=== PATIENT | male | born 1965 | race Caucasian/White ===

== ENCOUNTER 2024-04-28 15:45 | Emergency (ER) | payer OTHER, SELFPAY ==
[2024-04-28 15:55] VITALS: BP 185/111
--- NOTE | 2024-04-28 15:55 | ED.GENMED ---
ED Provider Triage
<Morales Galeas PA-C - Last Filed: 04/28/24 15:57>
-
Patient seen by provider in Triage?: Seen in Triage
Attestation: A medical screening examination has been initiated by a qualified medical provider. Based on the assessment performed at this time, it has been determined that an emergent medical condition may exist and the patient has been informed
that further medical evaluation and possible additional diagnostic testing may be needed.
HPI: 59-year-old male presenting to the ER with 3 days of chest pain. Primary care recommended patient come to the ER for further evaluation. No other associated symptoms. Patient notes multiple family members with cardiac issues.
GENERAL: Alert , in no apparent distress
EYE: No visual abnormalities.
NECK: Trachea midline
ENT: No visible abnormalities.
LUNGS: No acute respiratory distress
NEUROLOGICAL: Alert and oriented
SKIN: Skin intact. No visible changes.
MUSCULOSKELETAL: Moving extremities normally
PSYCH: Normal and appropriate interaction.
This is a medical evaluation conducted in person to initiate diagnostic evaluation and provide initial therapeutics. Please see further documentation by the treating clinician.
History of Present Illness
<Morales Galeas PA-C - Last Filed: 04/28/24 15:57>
General
Chief Complaint: Chest Pain
Time Seen by Provider: 04/28/24 17:44
<Gurpreet Serra DO - Last Filed: 04/28/24 18:26>
History of Present Illness
History of Present Illness:
TIME OF INITIAL ENCOUNTER: 6:15 PM
HPI: 59-year-old male presenting to the ER with 3 days of chest pain. Primary care recommended patient come to the ER for further evaluation. No other associated symptoms. The patient states that the symptoms come on spontaneously and are not
associated with exertion. He never had any diaphoresis or shortness of breath. He just resumed taking his omeprazole after being off of it for the last few weeks. He strolling suspects that heartburn/stomach ulcer could be a attributing factor.
He has not been to a oil filters inspector in over 15 years and thinks he had a stress test around that time. He is not sure where he saw the oil filters inspector. There has been no worsening of his symptoms today.
EXAM:
GENERAL: Well appearing in no distress, he is hypertensive
HEENT: Moist oral mucosa
CARDIOVASCULAR: No murmurs, normal heart rate, regular rhythm, No chest wall tenderness
PULMONARY: No respiratory distress, breath sounds are clear and equal
ABDOMEN: Soft with no peritoneal signs, no tenderness
NEUROLOGIC: Excellent strength all extremities, no coordination deficits
PSYCHIATRIC: Appropriate mental status, normal insight and judgement
EXTREMITIES: Nontender, no edema, moves all extremities equally
SKIN: No rash, no lesions
NUMBER AND COMPLEXITY OF PROBLEMS ADDRESSED AT THE ENCOUNTER
� Chronic conditions affecting care: High blood pressure, hyperlipidemia, GERD, diabetes
� Acute Exacerbation and/or Progression of Chronic Illness: This is an acute problem
� Differential Diagnosis includes: GERD, gastritis, stomach ulcer, chest wall pain, ACS
AMOUNT AND/OR COMPLEXITY OF DATA TO BE REVIEWED AND ANALYZED
� I performed an independent evaluation of and my interpretation is:
EKG: Sinus 64, normal axis, no acute ST abnormality
CT:
X-rays: Chest x-ray personally viewed, questionable density at the left base of doubtful clinical significance
Laboratory Studies: White count and hemoglobin are normal, chemistries unremarkable, troponin less than 0.012
Other:
� Review of other/old records: The patient was seen here in the emerged part with diverticulitis approximately 12 years ago
� Clinical information was obtained by an independent historian: I spoke to the at bedside
� Prescriptions/Medications Considered but not given:
� Further testing considered but not performed:
RISK OF COMPLICATIONS AND/OR MORBIDITY OR MORTALITY OF PATIENT MANAGEMENT
� Social determinants of health affecting care: Lives at home
� Discussion with other providers:
� Escalation of care including admission/observation vs risk of discharge considered: Although the patient has several cardiac risk factors, his symptoms have been ongoing for the past 3 days and he has a normal troponin. His
EKG is also normal. He has no symptoms that worsen with exertion. Given the amount of cardiac risk factors, I offered and considered keeping him for further observation however the patient feels very comfortable with close outpatient management.
He is to follow-up with [facility].
ANY OTHER UPDATES:
Past History
<Morales Galeas PA-C - Last Filed: 04/28/24 15:57>
Past History
ED Past Medical History: HTN
ED Past Surgical History: None
Social History
Tobacco: Smoker
Personal: Single
Employment: Employed
Phy Exam
<Gurpreet Serra DO - Last Filed: 04/28/24 18:26>
Physical Exam
Physical Exam:
See HPI
Scores
<Gurpreet Serra DO - Last Filed: 04/28/24 18:26>
Heart Score for Chest Pain Patients
STEMI patient?: Not applicable
Course
<Morales Galeas PA-C - Last Filed: 04/28/24 15:57>
Orders/Labs/Results
Orders:
Orders
04/28/24 15:46
EKG [Electrocardiogram (*1)] Urgent
Reason for Study: Chest Pain
EKG- Treatment ONCE
04/28/24 15:57
CR Chest - 2 Views Urgent
Comment:
Reason For Exam: chest pain
04/28/24 16:06
Basic Metabolic Panel Urgent
Complete Blood Count/With Diff Urgent
Troponin I Urgent
Abnormal Lab Results
04/28/24
16:06
RBC 4.33 L 10^6/uL
(4.70-6.10)
MCH 33.7 H pg
(27.0-31.0)
Abs Immat Gran (auto) 0.1 H 10^3/uL
(0-0.05)
Absolute Monos (auto) 0.9 H 10^3/uL
(0.1-0.6)
Monocytes % 9.5 H %
(1.7-9.3)
Carbon Dioxide 31 H mmol/L
(22-30)
04/28/24 16:06
04/28/24 16:06
Vital Signs
Initial and Last Documented VS:
Initial Vital Signs
Temp Pulse Resp BP Pulse Ox
36.9 C 68 20 185/111 100
04/28/24 15:55 04/28/24 15:55 04/28/24 15:55 04/28/24 15:55 04/28/24 15:55
Last Documented Vital Signs
Temp Pulse Resp BP Pulse Ox
36.9 C 68 16 166/93 98
04/28/24 15:55 04/28/24 18:05 04/28/24 18:05 04/28/24 18:04 04/28/24 18:08
<Gurpreet Serra, DO - Last Filed: 04/28/24 18:26>
Orders/Labs/Results
Orders:
Orders
04/28/24 15:46
EKG [Electrocardiogram (*1)] Urgent
Reason for Study: Chest Pain
EKG- Treatment ONCE
04/28/24 15:57
CR Chest - 2 Views Urgent
Comment:
Reason For Exam: chest pain
04/28/24 16:06
Basic Metabolic Panel Urgent
Complete Blood Count/With Diff Urgent
Troponin I Urgent
Abnormal Lab Results
04/28/24
16:06
RBC 4.33 L 10^6/uL
(4.70-6.10)
MCH 33.7 H pg
(27.0-31.0)
Abs Immat Gran (auto) 0.1 H 10^3/uL
(0-0.05)
Absolute Monos (auto) 0.9 H 10^3/uL
(0.1-0.6)
Monocytes % 9.5 H %
(1.7-9.3)
Carbon Dioxide 31 H mmol/L
(22-30)
04/28/24 16:06
04/28/24 16:06
Vital Signs
Initial and Last Documented VS:
Initial Vital Signs
Temp Pulse Resp BP Pulse Ox
36.9 C 68 20 185/111 100
04/28/24 15:55 04/28/24 15:55 04/28/24 15:55 04/28/24 15:55 04/28/24 15:55
Last Documented Vital Signs
Temp Pulse Resp BP Pulse Ox
36.9 C 68 16 166/93 98
04/28/24 15:55 04/28/24 18:05 04/28/24 18:05 04/28/24 18:04 04/28/24 18:08
<Gurpreet Serra DO - Last Filed: 04/28/24 18:26>
*Critical Care Note
Total Time (30-74mins, 75-104mins- exclusive of procedures): Not Applicable
ED Attending Note
<Morales Galeas PA-C - Last Filed: 04/28/24 15:57>
-
Portions of this chart may have been created with voice recognition software.� Occasional wrong word or��sound alike� substitutions may have occurred due to the inherent limitations of voice recognition software.
Discharge Plan
Departure
Patient Disposition: Home (Routine Discharge)
Date of Disposition: 04/28/24
Time of Disposition: 18:21
Patient with high blood pressure during this ER visit?: Yes
Discharge Problem:
Chest pain
Instructions: Chest Pain [facility] Follow Up
Prescriptions:
No Action
atenolol 100 MG tablet
100 mg PO DAILY
Hctz
PO DAILY
Patient Comments:
not sure amount
POTASSIUM
PO DAILY
Patient Comments:
not sure dose
hydrocodone-acetaminophen [Vicodin] 1 EACH tablet
1 ea PO Q6HPRN PRN (Reason: pain) Qty: 14 0RF
amoxicillin-pot clavulanate [Augmentin] 1 EACH tablet
1 ea PO BID Qty: 14 0RF
psyllium husk (aspartame) [Metamucil Fiber Singles] 1 PACKET powder in packet
1 packet PO DAILY Qty: 10 0RF
hydromorphone 2 MG tablet
2 mg PO Q4HPRN PRN (Reason: prn for pain) Qty: 20 0RF
Referrals:
Osmar Parra MD [Active] - Follow up in 2-3 days
Activity Restrictions/Additional Instructions:
I recommend that you follow-up with Dr. Parra's office, he is with [facility]. Somebody from their office should be calling you. If you do not hear from them by late afternoon tomorrow, I recommend that you call their
office to try to arrange close outpatient follow-up. Return here if worse. I recommend that you resume the omeprazole. This takes a few days to take effect.
Interventions
Interventions:
*Risk Screen - Suicide Last Done: 04/28/24 18:08
*General Assessment Last Done: 04/28/24 16:00
*Neglect/Abuse Screening Last Done: 04/28/24 18:08
ED- Fall Risk Assessment Last Done: 04/28/24 18:08
*ED COVID-19 Vaccine History Last Done: 04/28/24 18:08
ED- Cardiac Assessment Last Done: 04/28/24 18:08
Discharge Date and Time
Print Language: KOREAN
[2024-04-28 16:23] LABS: % Basophils 0.8 % (0-2); % Eosinophils 3.3 % (0-6); % Immature Granulocytes 0.5 % (0-0.5); % Lymphocytes 29.6 % (20.5-51.1); % Monocytes 9.5 % (1.7-9.3); % Neutrophils 56.3 % (42.2-75.2); Absolute Basophils 0.1 10^3/uL (0-0.2); Absolute Eosinophils 0.3 10^3/uL (0-0.7); Absolute Immature Granulocytes 0.1 10^3/uL (0-0.05); Absolute Lymphocytes 2.7 10^3/uL (1.2-3.4); Absolute Monocytes 0.9 10^3/uL (0.1-0.6); Absolute Neutrophils 5.1 10^3/uL (1.4-6.5); Hematocrit 40.4 % (39.0-52.0); Hemoglobin 14.6 g/dL (13.0-18.0); Mean Corp Hgb Conc. 36.1 g/dL (33.0-37.0); Mean Corpuscular Hgb 33.7 pg (27.0-31.0); Mean Corpuscular Volume 93.3 fL (80.0-94.0); Mean Platelet Volume 8.6 fL (7.4-10.4); Nucleated Red Blood Cells % 0 % (-); Platelet Count 222 10^3/uL (130-400); Red Blood Cell Count 4.33 10^6/uL (4.70-6.10); White Blood Cell Count 9.1 10^3/uL (4.8-10.8)
[2024-04-28 16:34] LABS: Blood Urea Nitrogen 18 mg/dl (9-20); Calcium 9.3 mg/dl (8.4-10.2); Carbon Dioxide 31 mmol/L (22-30); Chloride 101 mmol/L (98-107); Glucose 99 mg/dl (70-99); Potassium 4.1 mmol/L (3.5-5.1); Sodium 141 mmol/L (135-145); eGFR > 60.00
[2024-04-28 16:45] LABS: Troponin I < 0.012 ng/ml
[2024-04-28 18:04] VITALS: BP 166/93
[2024-04-28 18:08] VITALS: BMI 32.8
[2024-04-28 18:31] VITALS: BP 154/93
== END 2024-04-28 18:39 | disposition home or self-care (01) ==
LOC: EMR 15:45
PROVIDERS: Physician Assistant Medical; EMERGENCY PHYSICIAN Emergency Medicine; FAMILY PHYSICIAN Family Medicine
DX: R07.89 Other chest pain (principal); I10 Essential (primary) hypertension; F17.200 Nicotine dependence, unspecified, uncomplicated
CPT/HCPCS: 99283; 71046; 80048; 84484; 85025; 93005

== ENCOUNTER 2024-04-28 20:23 | Emergency (ER) | payer OTHER, SELFPAY ==
[2024-04-28 20:23] VITALS: BMI 32.7
[2024-04-28 20:25] VITALS: BP 201/111
--- NOTE | 2024-04-28 20:29 | ED.GENMED ---
History of Present Illness
General
Chief Complaint: Chest Problem
Time Seen by Provider: 04/28/24 20:28
History of Present Illness
History of Present Illness:
TIME OF INITIAL ENCOUNTER: 8:30 PM
HPI: I saw this patient earlier in the day and he came in with 3 days of intermittent chest discomfort with unremarkable EKG and troponin. The radiologist notified me later that the chest x-ray did show some concern for the appearance of the aorta
and recommended CTA imaging obtained.
EXAM:
GENERAL: Well appearing in no distress, he is hypertensive�he states that the hypertension is related to being stressed and worried
HEENT: Moist oral mucosa
CARDIOVASCULAR: No murmurs, normal heart rate, regular rhythm, No chest wall tenderness
PULMONARY: No respiratory distress, breath sounds are clear and equal
ABDOMEN: Soft with no peritoneal signs, no tenderness
NEUROLOGIC: Excellent strength all extremities, no coordination deficits
PSYCHIATRIC: Appropriate mental status, normal insight and judgement
EXTREMITIES: Nontender, no edema, moves all extremities equally
SKIN: No rash, no lesions
NUMBER AND COMPLEXITY OF PROBLEMS ADDRESSED AT THE ENCOUNTER
� Chronic conditions affecting care: High blood pressure, hyperlipidemia, diabetes
� Acute Exacerbation and/or Progression of Chronic Illness: This is an acute problem
� Differential Diagnosis includes: ACS, aortic dissection, hypertensive urgency, anxiety, noncardiac chest wall pain
AMOUNT AND/OR COMPLEXITY OF DATA TO BE REVIEWED AND ANALYZED
� I performed an independent evaluation of and my interpretation is:
EKG:
CT: CT shows no evidence of aortic dissection
X-rays:
Laboratory Studies:
Other:
� Review of other/old records:
� Clinical information was obtained by an independent historian:
� Prescriptions/Medications Considered but not given:
� Further testing considered but not performed: The patient just had workup prior to arrival�he was only sent here for CTA and there is been no new symptoms therefore no additional testing performed
RISK OF COMPLICATIONS AND/OR MORBIDITY OR MORTALITY OF PATIENT MANAGEMENT
� Social determinants of health affecting care: Lives at home
� Discussion with other providers: I did discuss case with Dr. Cantu earlier
� Escalation of care including admission/observation vs risk of discharge considered:
ANY OTHER UPDATES:
10:05 PM: I reassessed patient. The patient is resting comfortably. Blood pressure spontaneously improved. No evidence of aortic dissection. 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
Past History
Past History
ED Past Medical History: HTN
ED Past Surgical History: None
Social History
Tobacco: Smoker
Personal: Single
Employment: Employed
Phy Exam
Physical Exam
Physical Exam:
See HPI
Course
Orders/Labs/Results
Orders:
Orders
04/28/24 20:28
CT Chest Angio W/wo Iv Contras Urgent
Comment:
Reason For Exam: intermittent CP; abnormal CXR
Vital Signs
Initial and Last Documented VS:
Initial Vital Signs
Temp Pulse Resp BP Pulse Ox
36.9 C 69 18 201/111 100
04/28/24 20:25 04/28/24 20:25 04/28/24 20:25 04/28/24 20:25 04/28/24 20:25
Last Documented Vital Signs
Temp Pulse Resp BP Pulse Ox
36.9 C 68 16 164/78 99
04/28/24 20:25 04/28/24 20:43 04/28/24 20:43 04/28/24 20:43 04/28/24 20:43
*Critical Care Note
Total Time (30-74mins, 75-104mins- exclusive of procedures): Not Applicable
ED Attending Note
-
Portions of this chart may have been created with voice recognition software.� Occasional wrong word or��sound alike� substitutions may have occurred due to the inherent limitations of voice recognition software.
Discharge Plan
Departure
Patient Disposition: Home (Routine Discharge)
Date of Disposition: 04/28/24
Time of Disposition: 22:05
Patient with high blood pressure during this ER visit?: Yes
Discharge Problem:
Chest pain
Instructions: BLOOD PRESSURE
Prescriptions:
No Action
atenolol 100 MG tablet
100 mg PO DAILY
Hctz
PO DAILY
Patient Comments:
not sure amount
POTASSIUM
PO DAILY
Patient Comments:
not sure dose
hydrocodone-acetaminophen [Vicodin] 1 EACH tablet
1 ea PO Q6HPRN PRN (Reason: pain) Qty: 14 0RF
amoxicillin-pot clavulanate [Augmentin] 1 EACH tablet
1 ea PO BID Qty: 14 0RF
psyllium husk (aspartame) [Metamucil Fiber Singles] 1 PACKET powder in packet
1 packet PO DAILY Qty: 10 0RF
hydromorphone 2 MG tablet
2 mg PO Q4HPRN PRN (Reason: prn for pain) Qty: 20 0RF
Referrals:
Vannessa Haley DO [Family Provider] -
Activity Restrictions/Additional Instructions:
Follow-up with cardiology. Return here if worse or other concerns. The CAT scan of the chest shows no aortic dissection. The radiologist noted 'aortic ectasia' which is very common and is not of any significance. Be sure to continue your blood
pressure condition.
Interventions
Interventions:
*Risk Screen - Suicide Last Done: 04/28/24 20:25
*General Assessment Last Done: 04/28/24 20:25
*Neglect/Abuse Screening Last Done: 04/28/24 20:25
ED- Fall Risk Assessment Last Done: 04/28/24 20:32
*ED COVID-19 Vaccine History Last Done: 04/28/24 20:25
ED- Cardiac Assessment Last Done: 04/28/24 20:32
ED- Pulmonary Assessment Last Done: 04/28/24 20:32
Discharge Date and Time
Print Language: MONGOLIAN
[2024-04-28 20:43] VITALS: BP 164/78
[2024-04-28 22:20] VITALS: BP 147/68
== END 2024-04-28 22:27 | disposition home or self-care (01) ==
LOC: EMR 20:23
PROVIDERS: EMERGENCY PHYSICIAN Emergency Medicine; FAMILY PHYSICIAN Family Medicine
DX: R07.89 Other chest pain (principal); I10 Essential (primary) hypertension; F17.200 Nicotine dependence, unspecified, uncomplicated
CPT/HCPCS: 99284; 71275; Q9967

== ENCOUNTER → 2024-05-23 07:52 | Outpatient (REF) | payer OTHER, SELFPAY | LOC: DHCBC/DCA 07:52 | PROVIDERS: ATTENDING PHYSICIAN Internal Medicine Cardiovascular Disease; FAMILY PHYSICIAN Family Medicine | DX: R07.89 Other chest pain (principal) | CPT/HCPCS: 78452; 93017; A9500 ==

== ENCOUNTER → 2024-05-27 10:12 | Outpatient (REF) | payer OTHER, SELFPAY | LOC: HWRCS 10:12 | PROVIDERS: ATTENDING PHYSICIAN Internal Medicine Cardiovascular Disease; FAMILY PHYSICIAN Family Medicine | DX: R07.89 Other chest pain (principal) | CPT/HCPCS: 93306 ==

== ENCOUNTER 2024-06-01 10:06 | Inpatient (IN) | payer OTHER, SELFPAY ==
[2024-05-30] VITALS (20 sets, daily range): BP systolic 96–209; BP diastolic 60–119; BMI 32.1
[2024-05-30 07:40] LABS: Hematocrit 42.2 % (39.0-52.0); Hemoglobin 15.2 g/dL (13.0-18.0); Mean Corpuscular Hgb 33.6 pg (27.0-31.0); Mean Corpuscular Volume 93.4 fL (80.0-94.0); Mean Platelet Volume 8.5 fL (7.4-10.4); Platelet Count 215 10^3/uL (130-400); Red Blood Cell Count 4.52 10^6/uL (4.70-6.10); Red Cell Dist. Width 11.9 % (11.5-14.5); White Blood Cell Count 7.7 10^3/uL (4.8-10.8)
[2024-05-30] MEDS: LOW STRENGTH ASPIRIN 324 MG PO (07:43)
[2024-05-30 07:53] LABS: ALT (SGPT) 35 U/L (0-50); AST (SGOT) 40 U/L (17-59); Albumin 4.3 g/dl (3.5-5.0); Alkaline Phosphatase 87 U/L (38-126); Blood Urea Nitrogen 16 mg/dl (9-20); Calcium 8.9 mg/dl (8.4-10.2); Carbon Dioxide 30 mmol/L (22-30); Chloride 101 mmol/L (98-107); Estimated Creatinine Clearance 70 ml/min; Glucose 138 mg/dl (70-99); Sodium 140 mmol/L (135-145); Total Bilirubin 0.9 mg/dl (0.2-1.3); Total Protein 6.8 g/dl (6.3-8.2)
[2024-05-30 09:44] LABS: ACT-LR - POC 303 Seconds (116-155)
[2024-05-30 10:15] LABS: ACT-LR - POC 310 Seconds (116-155)
--- NOTE | 2024-05-30 10:56 | ITS.CL.CATH ---
[facility] - Catheterization
Cardiac Catheterization
Procedure Report:
LEFT HEART CATH AND CORONARY INTERVENTION
Date of Procedure: May 30, 2024
Referring: Dr. Henrique Fuentes
PROCEDURES:
1. Left heart catheterization with coronary and single-plane left ventriculography
2. Successful stenting of the mid right coronary artery with a 4.5 x 18 mm [place] stent that was postdilated to high pressures with a 4.5 mm noncompliant balloon
INDICATION: This is a 59-year-old gentleman with a past medical history notable for hypertension and hyperlipidemia who developed the recent onset of substernal chest pressure and a stress study that showed inferior ischemia. He is now referred for
coronary angiography.
ACCESS: Right radial artery, 6 [place] sheath
HEMODYNAMICS (mmHg):
AO (s/d) : 150/85
LV (s/d) : 143/11
LVEDP : 19
CORONARY FINDINGS
Dominance: Right
LEFT MAIN: Normal
LEFT ANTERIOR DESCENDING: The LAD arises normally from the left main and runs in the anterior interventricular groove supplying a single sizable diagonal branch. The LAD has minor irregularities over its course but no focal obstructive stenosis
CIRCUMFLEX: Medium caliber nondominant vessel giving rise to a bifurcating OM1 with minor irregularities
RIGHT CORONARY: The right coronary artery is a large-caliber dominant vessel with an ulcerated 95% stenosis noted in the mid RCA. The PDA is widely patent. The posterolateral branch is widely patent.
VENTRICULOGRAPHY: Left ventriculography was performed in an GAMA projection. The digital single-plane left ventricular ejection fraction is visually estimated at 60%. No regional wall motion abnormalities are noted
ANGIOPLASTY PROCEDURE DETAIL: Upon review of the diagnostic catheterization films a decision was made to proceed with percutaneous revascularization of the high-grade stenosis in the mid RCA. A 600 mg loading dose of clopidogrel was administered.
Intravenous heparin was given and the ACT was monitored throughout the procedure. The origin of the RCA was cannulated with a 6 [place] JR4 guide catheter in the mid RCA stenosis was crossed with a BMW guidewire which was advanced into the distal
vessel. Balloon predilation was performed using a 2.5 x 12 mm [place] balloon and was followed by placement of a 4.5 x 18 mm [place] stent that was implanted at nominal pressures then postdilated between 14 and 16 nellie with a 4.5 mm noncompliant
balloon. The patient did experience chest discomfort following stent deployment which persisted through the conclusion of the procedure and required IV nitroglycerin. There was JENNIE-3 flow into the distal vessel and no obvious dissection or loss
of any significant sidebranch.
SEDATION: 80 minutes of procedural sedation was utilized. An independent certified medical records coder was present to assist with and help manage the patient's level of consciousness and physiologic status.
RADIATION SUMMARY: Fluoro Time (min): 9.1, Dose (mGy): 904.4, DAP (Gy.cm2) : 57.9
CONCLUSIONS
1. Successful stenting of the mid RCA with a 4.5 x 18 mm [place] stent that was implanted at nominal pressures and postdilated with a 4.5 mm noncompliant balloon
2. Preserved left ventricular systolic function
RECOMMENDATIONS
1. Uninterrupted dual antiplatelet therapy for 6 to 12 months
2. High intensity statin with goal LDL cholesterol less than 70 and closer to 55 mg/dL
3. Home blood pressures are not well-controlled. Titrate medication for better blood pressure control
Copy to: Dr. Henrique Fuentes
[2024-05-30] MEDS: NORVASC 5 MG PO (10:58)
[2024-05-30] MEDS: COREG 12.5 MG PO ×2 (11:16→20:22)
[2024-05-30] MEDS: TYLENOL 650 MG PO ×2 (11:31→18:35)
--- NOTE | 2024-05-30 13:12 | PTCARENOTE ---
Received patient from the labor specialist at 1230 after cath via R radial. Radial band in place with a strong radial pulse and pulse ox of 96% on the right hand. NTG gtt infusing initially at 60mcg/min, SBP now in the low 100's, reports right sided chest
pain as a 3/10 and much better than earlier. Patient seen by Dr. Parekh, to taper NTG gtt if BP is running soft. Notified Tal Corbett LEATHER LACER with BP of 96/74 now and orders for diovan and HCTZ PO. NTG gtt decreased to 40mcg/min and will hold off on PO meds
as ordered until SBP >120.
[2024-05-30 17:42] LABS: Glucose - Point of Care 79 mg/dl (70-99)
--- NOTE | 2024-05-30 17:49 | PTCARENOTE ---
TT to Tal Corbett INTERACTIVE MEDIA MARKETING SPECIALIST re: diovan and HCTZ ordered earlier. BP still < 120 and medications discontinued. Right sided chest pain much less but patient still rates 2/10. To continue NTG gtt which is presently at 25mcg/min and maintain, continuing to
monitor BP.
[2024-05-30] MEDS: LIPITOR 40 MG PO (18:33)
[2024-05-30] MEDS: TRICOR 48 MG PO (18:33)
[2024-05-30 21:42] LABS: Glucose - Point of Care 139 mg/dl (70-99)
[2024-05-30] MEDS: PERCOCET 5/325 1 TABLET PO (23:21)
[2024-05-30] MEDS: MELATONIN 5 MG PO (23:35)
[2024-05-31] VITALS (13 sets, daily range): BP systolic 128–189; BP diastolic 85–110; BMI 32.5
[2024-05-31] MEDS: TYLENOL 650 MG PO (00:31)
[2024-05-31 03:23] LABS: Hematocrit 37.4 % (39.0-52.0); Hemoglobin 13.4 g/dL (13.0-18.0); Mean Corp Hgb Conc. 35.8 g/dL (33.0-37.0); Mean Corpuscular Hgb 33.1 pg (27.0-31.0); Mean Corpuscular Volume 92.3 fL (80.0-94.0); Mean Platelet Volume 8.6 fL (7.4-10.4); Platelet Count 193 10^3/uL (130-400); Red Blood Cell Count 4.05 10^6/uL (4.70-6.10); Red Cell Dist. Width 11.9 % (11.5-14.5); White Blood Cell Count 9.6 10^3/uL (4.8-10.8)
[2024-05-31 03:46] LABS: Blood Urea Nitrogen 20 mg/dl (9-20); Calcium 9.2 mg/dl (8.4-10.2); Carbon Dioxide 25 mmol/L (22-30); Chloride 100 mmol/L (98-107); Estimated Creatinine Clearance 61 ml/min; Glucose 128 mg/dl (70-99); HDL Cholesterol 45 mg/dl; Potassium 3.7 mmol/L (3.5-5.1); Sodium 135 mmol/L (135-145); Total Cholesterol 173 mg/dl (50-199); eGFR 49.33
[2024-05-31 04:10] LABS: Triglyceride 425 mg/dl (10-149)
[2024-05-31 04:35] LABS: Hepatitis C Antibody Negative (Negative)
[2024-05-31 04:52] LABS: LDL Cholesterol, Direct 73 mg/dl
[2024-05-31] MEDS: PERCOCET 5/325 1 TABLET PO (05:42)
--- NOTE | 2024-05-31 06:34 | PTCARENOTE ---
Pt NSR on monitor. Nitro gtt at 20 mcg/min. Pt. C/o splitting headache 12/01. Tylenol, Percocet, and melatonin given and not effective. Chest pain decreased from 06/03 to 0. Nitro gtt decreased to 10mcg/min per order. Headache improved to 3/10. Pt
resting comfortable this morning. Safety measures in place.
[2024-05-31 07:18] LABS: Glucose - Point of Care 125 mg/dl (70-99)
[2024-05-31] MEDS: NORVASC 5 MG PO ×2 (07:42→12:16)
[2024-05-31] MEDS: PLAVIX 75 MG PO (07:42)
[2024-05-31] MEDS: PROTONIX 40 MG PO (07:42)
[2024-05-31] MEDS: KCL 20 MEQ PO (07:43)
[2024-05-31] MEDS: ORETIC 12.5 MG PO (07:43)
[2024-05-31] MEDS: LOW STRENGTH ASPIRIN 81 MG PO (07:43)
[2024-05-31] MEDS: WELLBUTRIN XL (24 hour extended release) 300 MG PO (07:43)
[2024-05-31] MEDS: COREG 12.5 MG PO ×2 (07:43→20:35)
[2024-05-31] MEDS: DIOVAN 160 MG PO (07:43)
--- NOTE | 2024-05-31 08:22 | W.PN.CARDCBS ---
Addendum entered and electronically signed by Freddy Parekh MD 05/31/24 11:54:
Attending addendum:
-Recurring low level chest tightness. Will check CPK/MB
-Give an additional amlodipine 5mg now and increase to 5mg po bid
-Stop cholestyramine and add Zetia. Not sure why he is on cholestyramine
-Increase atorvastatin from 40mg to 80mg
-Further management based on CPK/MB
Addendum entered and electronically signed by Freddy Parekh MD 05/31/24 09:00:
attending addendum: Patient seen and examined. AUTOMOTIVE ENGINEER note reviewed and patient seen by me. He is feeling well this am after being off nitroglycerine.
-Primary Hypertension:
Blood pressures remain high.
Added amlodipine yesterday.
Discussed that he needs to monitor home blood pressures closely over the next few weeks and bring machine to the next office visit.
Changed metoprolol to carvediolol
-Mixed hyperlipidemia
LDL remains above goal. Think he will need PCSK9 in addition to statin for goal LDL closer to 55mg/dl and clearly below 70 mg/dl
PCSK9 therapy was discussed and will be rediscussed in the office
He absolutely needs better control of his DM otherwise triglycerides will never come under good control.
-Renal insufficiency:
Needs repeat BMP in a few days
-Coronary artery disease
Recent stent and needs dual antiplatelet therapy, good blood pressure, good diabetes, good cholesterol management going forward.
Original Note:
Today's Communication / Plan
-
post PCI RCA
bp improved, no further cp
Cr mildly elevated, check BMP in 1 week
DAPT, carvedilol, amlodipine, valsartan/HCTZ, statin
Cardiac rehab c/s
smoking cessation
Impression / Plan
-
PCP: Dr. Haley
CDY: Kyler Fuentes DO
59-year-old gentleman with a past medical history notable for hypertension and hyperlipidemia who developed the recent onset of substernal chest pressure and a stress study that showed inferior ischemia. He is now referred for coronary angiography.
Impression:
Chest pain/Abn NST
post PCI mid RCA x 1 NANI 05/30/23
HTN
Hyperlipidemia
GERD
BPH
IBP
Peripheral neuropathy
DM2
Active smoker
daily ETOH
PROCEDURES:
1. Left heart catheterization with coronary and single-plane left ventriculography
2. Successful stenting of the mid right coronary artery with a 4.5 x 18 mm [place] stent that was postdilated to high pressures with a 4.5 mm noncompliant balloon
Plan:
post PCI RCA with chest pain and uncontrolled HTN
this am CP free, still on nitro @5mcg
tele no ectopy, radial site stable
Stop Nitro now, oob ambulate
DAPT ASA/Plavix
BP 160's this am, will stop metoprolol and switch to carvedilol
Add Amlodipine, continue valsartan/HCTZ
LDL 73, continue atorvastatin 40mg and fenofibrate
Cr up to 1.6, baseline 1.3, will check BMP in 1 week
GERD - Stop omeprazole will switch to Protonix while on Plavix
K+ 3.7 will give 20meq Kdur now
smoking cessation reinforced, was down to 3/day
monitor bp at home and bring log to follow up appointment
Cardiac rehab c/s
f/u [facility] 2-4 weeks
home this afternoon if no further chest pain and bp stable
Progress Note - Computer Operations Manager
Subjective
Date of Service: May 31, 2024
denies cp, sob
Objective
Labs:
05/31/24 02:54
05/31/24 02:54
Labs
Hgb 13.4 g/dL (13.0-18.0) 05/31/24 02:54
Hct 37.4 % (39.0-52.0) L 05/31/24 02:54
Plt Count 193 10^3/uL (130-400) 05/31/24 02:54
Sodium 135 mmol/L (135-145) 05/31/24 02:54
Potassium 3.7 mmol/L (3.5-5.1) 05/31/24 02:54
BUN 20 mg/dl (9-20) 05/31/24 02:54
Creatinine 1.6 mg/dL (0.7-1.3) H 05/31/24 02:54
Glucose 128 mg/dl (70-99) H 05/31/24 02:54
Vital Signs and I&O:
Vital Signs
Temp Pulse Resp BP Pulse Ox
97.7 F 63 18 147/94 99
05/31/24 07:12 05/31/24 03:15 05/31/24 07:12 05/31/24 02:46 05/31/24 07:12
Vital Signs
Temp Pulse Resp BP Pulse Ox
97.7 F 63 18 147/94 99
05/31/24 07:12 05/31/24 03:15 05/31/24 07:12 05/31/24 02:46 05/31/24 07:12
Intake & Output
05/29/24 05/30/24 05/31/24 06/01/24
06:59 06:59 06:59 06:59
Intake Total 1240 / 1240
Balance 1240 / 1240
Physical Exam
Physical Exam
NAD, AOX3
S1, s2, RRR
CTAB, non labored, no wheeze
SNTND bsx4
R rad site c/d/i no HT, good pulse
[2024-05-31 08:56] LABS: Glycohemoglobin (HgbA1c) 4.8 % (4.0-5.6)
[2024-05-31] MEDS: QUESTRAN 4 GRAM PO (11:20)
--- NOTE | 2024-05-31 11:31 | PTCARENOTE ---
Pt reports chest pressure 2/10 and feels the same as it did when he first came but now is only on the R side compared to both sides of chest. BP 181/96. ekg obtained- SB 50s. Pj Pimentel NP made aware and at bedside. Labs ordered.
[2024-05-31 12:05] LABS: Creatine Phosphokinase 243 U/L (55-170)
[2024-05-31] MEDS: ZETIA 10 MG PO (12:16)
[2024-05-31 12:20] LABS: CKMB 24.2 ng/ml (0.0-3.4)
[2024-05-31 13:27] LABS: Total CK 288 U/L (55-170)
[2024-05-31 13:46] LABS: Glucose - Point of Care 104 mg/dl (70-99)
[2024-05-31 14:02] LABS: CKMB 25.6 ng/ml (0.0-3.4)
--- NOTE | 2024-05-31 14:53 | CM ---
priced generic vascepa 2gm BID - Icosapent ethyl, his cost is $10/month
--- NOTE | 2024-05-31 16:05 | CM ---
spoke to pt in room, he is previndep, lives with his in a 2 story home with 2 step sto enter. he denies any dc planning needs or dme's. plan is for dc to home when medically stable.
[2024-05-31] MEDS: LIPITOR 80 MG PO (17:11)
[2024-05-31] MEDS: TRICOR 48 MG PO (17:11)
[2024-05-31 17:19] LABS: Glucose - Point of Care 152 mg/dl (70-99)
[2024-05-31 21:29] LABS: Glucose - Point of Care 149 mg/dl (70-99)
[2024-05-31] MEDS: MELATONIN 5 MG PO (21:39)
[2024-06-01 01:48] LABS: Hematocrit 39.9 % (39.0-52.0); Hemoglobin 14.1 g/dL (13.0-18.0); Mean Corp Hgb Conc. 35.3 g/dL (33.0-37.0); Mean Corpuscular Hgb 32.9 pg (27.0-31.0); Mean Platelet Volume 8.6 fL (7.4-10.4); Platelet Count 205 10^3/uL (130-400); Red Blood Cell Count 4.29 10^6/uL (4.70-6.10); Red Cell Dist. Width 11.9 % (11.5-14.5); White Blood Cell Count 8.7 10^3/uL (4.8-10.8)
[2024-06-01 02:04] LABS: Blood Urea Nitrogen 20 mg/dl (9-20); Calcium 9.3 mg/dl (8.4-10.2); Carbon Dioxide 24 mmol/L (22-30); Chloride 100 mmol/L (98-107); Estimated Creatinine Clearance 66 ml/min; Glucose 135 mg/dl (70-99); Magnesium 1.5 mg/dl (1.6-2.3); Potassium 4.1 mmol/L (3.5-5.1); Sodium 135 mmol/L (135-145)
[2024-06-01 02:08] LABS: Total CK 184 U/L (55-170)
[2024-06-01 04:05] VITALS: BP 150/96
[2024-06-01 04:06] VITALS: BMI 31.9
--- NOTE | 2024-06-01 04:59 | PTCARENOTE ---
Pt NSR on monitor. Denies chest pain or headache. Instructed to use call sanchez, safety measures in place
[2024-06-01 07:20] VITALS: BP 155/95
[2024-06-01 07:23] LABS: Glucose - Point of Care 138 mg/dl (70-99)
--- NOTE | 2024-06-01 08:26 | W.PN.CARDCBS ---
Addendum entered and electronically signed by Raghav Villar MD 06/01/24 09:56:
I saw and examined the patient.
The Weight Clerk's note was reviewed and I agree with the note.
Comment:
GEN: No distress, awake, Ox3
HEENT: supple, anicteric, mmm
LUNGS: CTA, no wheezes/rales
CV: Reg, S1/S2, 05/30 syst LSB, no gallop
ABD: soft, BS+, NT/ND
EXT: No edema
NEURO: Gross non-focal
SKIN: No rash
plan:
No further chest pains. Overall doing well. Okay for discharge.
Continue aspirin and Plavix.
Continue Coreg, Diovan, atorvastatin, amlodipine.
LDL is 73. Add Zetia.
Original Note:
Today's Communication / Plan
-
periprocedureal ME, no further chest pain this am
continue DAPT and BP management
Impression / Plan
-
PCP: Dr. Haley
CDY: Kyler Fuentes,
59-year-old gentleman with a past medical history notable for hypertension and hyperlipidemia who developed the recent onset of substernal chest pressure and a stress study that showed inferior ischemia. He is now referred for coronary angiography.
Impression:
Chest pain/Abn NST
post PCI mid RCA x 1 NANI 05/30/23
Periprocedural ME peak CKMB 26.5/Troponin 4.78
HTN
Hyperlipidemia
GERD
BPH
IBP
Peripheral neuropathy
DM2
Active smoker
daily ETOH
PROCEDURES:
1. Left heart catheterization with coronary and single-plane left ventriculography
2. Successful stenting of the mid right coronary artery with a 4.5 x 18 mm Lefty stent that was postdilated to high pressures with a 4.5 mm noncompliant balloon
Plan:
post PCI RCA with chest pain and uncontrolled HTN
no further CP, CKMB and troponin positive for periprocedural ME, unsure cause angio reviewed with IC and no issues seen
tele no ectopy, radial site stable
DAPT ASA/Plavix
BP improved with increased meds
continue Amlodipine 5mg bid, carvedilol 12.5 bid, continue valsartan/HCTZ
LDL 73, goal under 55, increase atorvastatin to 80mg and add zetia
TG 425 will stop fenofibrate and cholestyramine and add Vascepa 2g bid
Cr trending down will check again on Thursday
GERD - Stop omeprazole will switch to Protonix while on Plavix
smoking cessation reinforced, was down to 3/day
monitor bp at home and bring log to follow up appointment
Cardiac rehab c/s
f/u DCA 2-4 weeks
home today if ambulating and no further chest pain
Progress Note - Application Spec
Subjective
Date of Service: June 01, 2024
denies cp, sob
Objective
Labs:
06/01/24 01:21
06/01/24 01:21
Labs
Hgb 14.1 g/dL (13.0-18.0) 06/01/24 01:21
Hct 39.9 % (39.0-52.0) 06/01/24 01:21
Plt Count 205 10^3/uL (130-400) 06/01/24 01:21
Sodium 135 mmol/L (135-145) 06/01/24 01:21
Potassium 4.1 mmol/L (3.5-5.1) 06/01/24 01:21
BUN 20 mg/dl (9-20) 06/01/24 01:21
Creatinine 1.5 mg/dL (0.7-1.3) H 06/01/24 01:21
Glucose 135 mg/dl (70-99) H 06/01/24 01:21
Troponins
05/31/24 06/01/24
17:19 01:21
Troponin I 4.780 H* 3.780 H*
Vital Signs and I&O:
Vital Signs
Temp Pulse Resp BP Pulse Ox
98.1 F 69 20 150/96 98
06/01/24 07:17 06/01/24 05:30 06/01/24 07:17 06/01/24 04:05 06/01/24 07:17
Vital Signs
Temp Pulse Resp BP Pulse Ox
98.1 F 69 20 150/96 98
06/01/24 07:17 06/01/24 05:30 06/01/24 07:17 06/01/24 04:05 06/01/24 07:17
Intake & Output
05/30/24 05/31/24 06/01/24 06/02/24
06:59 06:59 06:59 06:59
Intake Total 1240 / 1240
Balance 1240 / 1240
Physical Exam
Physical Exam
NAD< AOX3
S1, S2, RRR
CTAB, non labored, no wheeze
SNTND Bsx4
R rad site c/d/i
[2024-06-01] MEDS: PROTONIX 40 MG PO (08:37)
[2024-06-01] MEDS: PLAVIX 75 MG PO (08:37)
[2024-06-01] MEDS: NORVASC 5 MG PO (08:37)
[2024-06-01] MEDS: ZETIA 10 MG PO (08:38)
[2024-06-01] MEDS: WELLBUTRIN XL (24 hour extended release) 300 MG PO (08:38)
[2024-06-01] MEDS: COREG 12.5 MG PO (08:38)
[2024-06-01] MEDS: LOW STRENGTH ASPIRIN 81 MG PO (08:39)
[2024-06-01] MEDS: ORETIC 12.5 MG PO (08:39)
[2024-06-01] MEDS: DIOVAN 160 MG PO (08:40)
--- NOTE | 2024-06-01 10:10 | PTCARENOTE ---
Assumed care of pt from night RN. Pt received awake and alert, Ox3. VSS, CM shows NSR 60's, POX98% on RA. Right radial ULYSSES, CMS normal to limb. Pt denies any further CP or discomfort. For possible D/C today.
[2024-06-01 12:10] VITALS: BP 118/79
[2024-06-01 12:13] LABS: Glucose - Point of Care 188 mg/dl (70-99)
--- NOTE | 2024-06-01 12:50 | CM ---
Plan for DC to home.
There are no identified DC needs.
Plan: HOME, no needs.
--- NOTE | 2024-06-01 13:21 | W.DS.TRANS ---
DC Summary - Inspector [employer]
-
Discharge Instructions:
Discharge Diagnosis/Procedures Angioplasty and stent to Right Coronary artery
Diet Low Cholesterol,Low Sodium
Driving Restrictions No driving for 24 hours
Blood Work Check BMP on Thursday
Other Services Cardiac Rehab
Instructions:
Stand-Alone Forms: DC Instructions- Cath/EP Lab
Changes to Home Medications: Yes
Discharge Medications:
DC Medications w/original date entered in [facility]
bupropion HCl 300 mg 24 hr tablet, extended release 300 mg PO DAILY 05/30/24
colchicine 0.6 mg tablet 0.6 mg PO DAILYPRN PRN gout 05/30/24
dulaglutide 1.5 mg/0.5 mL subcutaneous pen injector (Trulicity) 1.5 mg SC QWEEK 05/30/24
lmumcvsacxyd-nskiwllt-ktqicm tablet 1 tab PO DAILY 05/30/24
potassium chloride 10 mEq capsule,extended release 10 meq PO DAILYPRN PRN low potassium 05/30/24
tadalafil 5 mg tablet 5 mg PO DAILYPRN PRN ED 05/30/24
valsartan 160 mg-hydrochlorothiazide 12.5 mg tablet 1 tab PO DAILY 05/30/24
amlodipine 5 mg tablet 5 mg PO BID #180 tabs 05/31/24
aspirin 81 mg chewable tablet 81 mg PO DAILY #1 tab 05/31/24
atorvastatin 80 mg tablet 80 mg PO QPM #90 tabs 05/31/24
carvedilol 12.5 mg tablet 12.5 mg PO BID #180 tabs 05/31/24
clopidogrel 75 mg tablet 75 mg PO DAILY #90 tabs 05/31/24
ezetimibe 10 mg tablet 10 mg PO DAILY #90 tabs 05/31/24
pantoprazole 40 mg tablet,delayed release 40 mg PO DAILY #90 tabs 05/31/24
icosapent ethyl 1 gram capsule 2 g (2 x 1 gram) PO BID #180 caps 06/01/24
Home Medication Changes
new to icosapent, pantoprazole, ezetimibe, plavix, coreg, amlodipine, atorvastatin increased to 80mg
stopped metoprolol, fenofibrate, cholestyramine
Pending Results: No
[2024-06-01] MEDS: MAGNESIUM OXIDE 500 MG PO (13:38)
--- NOTE | 2024-06-01 14:02 | PTCARENOTE ---
All D/C info reviewed with pt and spouse, all questions answered. Pt D/C'd home with spouse.
--- NOTE | 2024-06-01 14:09 | PTCARENOTE ---
500 mg po Magnesium given as per MAR prior to D/C
== END 2024-06-01 14:03 | disposition home or self-care (01) | DRG 322 ==
LOC: IVU 10:06
PROVIDERS: Nurse Practitioner; Nurse Practitioner Adult Health; ADMITTING PHYSICIAN Internal Medicine Interventional Cardiology; FAMILY PHYSICIAN Family Medicine
PROC: B2151ZZ Fluoroscopy of Left Heart using Low Osmolar Contrast (ICD-10-PCS; 2024-06-01)
PROC: B2111ZZ Fluoroscopy of Multiple Coronary Arteries using Low Osmolar Contrast (ICD-10-PCS; 2024-06-01)
PROC: 02703DZ Dilation of Coronary Artery, One Artery with Intraluminal Device, Percutaneous Approach (ICD-10-PCS; 2024-06-01)
PROC: 4A023N7 Measurement of Cardiac Sampling and Pressure, Left Heart, Percutaneous Approach (ICD-10-PCS; 2024-06-01)
DX: I21.9 Acute myocardial infarction, unspecified (principal); N17.9 Acute kidney failure, unspecified; I10 Essential (primary) hypertension; E78.5 Hyperlipidemia, unspecified; K21.9 Gastro-esophageal reflux disease without esophagitis; N40.0 Benign prostatic hyperplasia without lower urinary tract symptoms; K58.9 Irritable bowel syndrome, unspecified; E11.40 Type 2 diabetes mellitus with diabetic neuropathy, unspecified; I25.10 Atherosclerotic heart disease of native coronary artery without angina pectoris; F17.210 Nicotine dependence, cigarettes, uncomplicated; Z79.02 Long term (current) use of antithrombotics/antiplatelets; Z79.899 Other long term (current) drug therapy
CPT/HCPCS: 80048; 80053; 80061; 82550; 82553; 82962; 83036; 83721; 83735; 84484; 85027; 85347; 86803; 93005; 93458; 99152; 99153; C1725; C1769; C1894; C9600; Q9967

== ENCOUNTER 2024-06-24 11:34 | Outpatient (RCR) | payer OTHER, SELFPAY ==
[2024-06-16 09:31] LABS: Glucose - Point of Care 106 mg/dl (70-99)
[2024-06-16 09:47] LABS: Glucose - Point of Care 108 mg/dl (70-99)
[2024-06-22 10:59] LABS: Glucose - Point of Care 111 mg/dl (70-99)
[2024-06-22 11:42] LABS: Glucose - Point of Care 147 mg/dl (70-99)
[2024-06-24 11:01] LABS: Glucose - Point of Care 196 mg/dl (70-99)
[2024-06-24 11:53] LABS: Glucose - Point of Care 117 mg/dl (70-99)
== END 2024-06-24 23:59 | disposition home or self-care (01) ==
LOC: CRHB 11:34
PROVIDERS: ATTENDING PHYSICIAN Internal Medicine Cardiovascular Disease
DX: I25.10 Atherosclerotic heart disease of native coronary artery without angina pectoris (principal); Z95.5 Presence of coronary angioplasty implant and graft
CPT/HCPCS: 82962; 93797; 93798; G0422; G0423

== ENCOUNTER 2024-07-06 11:12 | Outpatient (RCR) | payer OTHER, SELFPAY ==
[2024-06-29 11:10] LABS: Glucose - Point of Care 127 mg/dl (70-99)
[2024-06-29 12:03] LABS: Glucose - Point of Care 131 mg/dl (70-99)
[2024-07-01 11:01] LABS: Glucose - Point of Care 115 mg/dl (70-99)
[2024-07-01 11:59] LABS: Glucose - Point of Care 126 mg/dl (70-99)
[2024-07-06 11:00] LABS: Glucose - Point of Care 132 mg/dl (70-99)
[2024-07-06 11:51] LABS: Glucose - Point of Care 140 mg/dl (70-99)
== END 2024-07-06 23:59 | disposition home or self-care (01) ==
LOC: CRHB 11:12
PROVIDERS: ATTENDING PHYSICIAN Internal Medicine Cardiovascular Disease
DX: I25.10 Atherosclerotic heart disease of native coronary artery without angina pectoris (principal); Z95.5 Presence of coronary angioplasty implant and graft
CPT/HCPCS: 82962; 93797; 93798

== ENCOUNTER 2024-08-12 10:38 | Outpatient (RCR) | payer OTHER, SELFPAY | END 2024-08-12 23:59 | disposition home or self-care (01) | LOC: CRHB 10:38 | PROVIDERS: ATTENDING PHYSICIAN Internal Medicine Cardiovascular Disease | DX: I25.10 Atherosclerotic heart disease of native coronary artery without angina pectoris (principal); Z95.5 Presence of coronary angioplasty implant and graft | CPT/HCPCS: 93797; 93798 ==

== ENCOUNTER → 2025-04-19 10:54 | Outpatient (REF) | payer OTHER, SELFPAY | LOC: RCS 10:54 | PROVIDERS: ATTENDING PHYSICIAN Internal Medicine Cardiovascular Disease; FAMILY PHYSICIAN Family Medicine | DX: I25.10 Atherosclerotic heart disease of native coronary artery without angina pectoris (principal) | CPT/HCPCS: 93306 ==

== ENCOUNTER 2025-05-02 19:51 | Emergency (ER) | payer OTHER, SELFPAY ==
[2025-05-02 19:53] VITALS: BP 137/88
[2025-05-02 20:32] VITALS: BP 121/72
[2025-05-02 21:07] LABS: Hematocrit 36.3 % (39.0-52.0); Hemoglobin 12.9 g/dL (13.0-18.0); Mean Corp Hgb Conc. 35.5 g/dL (33.0-37.0); Mean Corpuscular Volume 90.1 fL (80.0-94.0); Nucleated Red Blood Cells % 0 % (-); Platelet Count 311 10^3/uL (130-400); Red Cell Dist. Width 11.9 % (11.5-14.5)
--- NOTE | 2025-05-02 21:16 | ED.GENMED ---
History of Present Illness
General
Chief Complaint: Swelling
Time Seen by Provider: 05/02/25 20:12
History of Present Illness
History of Present Illness:
Randall is a 6-year-old male with past medical history of [place], hypertension, diabetes who presents complaining of bilateral lower extremity edema for 4 days. Reports that this began Thursday after a long night of [employer] driving. It has not gotten
any better and his was concerned so he presents to the ER today. Had some shortness of breath just prior to coming in to the ER but denies any exertional dyspnea, chest pain, current shortness of breath, nausea.
Past History
Past History
ED Past Medical History: HTN
ED Past Surgical History: None
Social History
Tobacco: Smoker
Personal: Single
Employment: Employed
Phy Exam
General Physical Exam
General Presentation: well appearing and no apparent distress
General Skin: warm and dry
General Habitus: normal
General Mental: alert
General Hydration: appears well hydrated
ENT Exam
ENT Exam: EOMI, pharynx normal, neck supple and normocephalic
Eye Exam
Eye Exam: PERRL, cornea clear and conjunctiva normal
Cardiovascular Exam
Cardiovascular Exam: regular rate/rhythm, no edema, no murmur and normal peripheral pulses
Pulmonary Exam
Pulmonary Exam: lungs clear, no respiratory distress, no rales, no crackles, no rhonchi, no stridor, no wheezing and no cough
Gastrointestinal Exam
Gastrointestinal Exam: normal bowel sounds, non tender, soft, no organomegaly, no pulsatile mass and non distended
Neurological Exam
Neurological Exam: alert, oriented x3, no motor deficits and speech normal
Musculoskeletal Exam
Musculoskeletal Exam: full ROM, no edema and edema (2+ b/l LE to ankle)
Skin Exam
Skin Exam: normal color, warm/dry, no rash and no petechia
Psychiatric Exam
Psychiatric Exam: normal mood/affect
Scores
Heart Failure Risk
Heart Failure Risk Score: Yes
History of Stroke or TIA: No
History of intubation for respiratory distress: No
Heart rate on ED arrival >/= 110: No
SaO2 <90% on arrival on room air: No
HR >/=110 during 3min walk test (or too ill to perform test): No
ECG has acute ischemic changes: No
Urea >/=12mmol/L (BUN 33.6mg/dL): No
Serum CO2>/=35mmol/L: No
Troponin I or T elevated to [place] Level (0.4mg/dL): No
NT-proBNP >/=5,000ng/L (5,000pg/ml): No
HF Risk Score: 0
Admission Status: LOW RISK 2.8% Consider discharge to home with f/u visit to PCP/Landscape Crew Leader
Course
Orders/Labs/Results
Orders:
Orders
05/02/25 19:57
EKG [Electrocardiogram (*1)] Urgent
Reason for Study: Shortness of Breath
EKG- Treatment ONCE
05/02/25 20:51
BNP [NT-proBNP] Urgent
Complete Blood Count/With Diff Urgent
Comprehensive Metabolic Panel Routine
Troponin I Urgent
Comment: ADD ON
05/02/25 21:20
Add On- LAB Urgent
Tests Added?: troponin
05/02/25 21:58
CXR2 [CR Chest - 2 Views ] Urgent
Comment:
Reason For Exam: LE edema and SOB
Abnormal Lab Results
05/02/25
20:51
RBC 4.03 L 10^6/uL
(4.70-6.10)
Hgb 12.9 L g/dL
(13.0-18.0)
Hct 36.3 L %
(39.0-52.0)
MCH 32.0 H pg
(27.0-31.0)
Absolute Monos (auto) 0.8 H 10^3/uL
(0.1-0.6)
Monocytes % 10.3 H %
(1.7-9.3)
BUN 23 H mg/dl
(9-20)
Creatinine 1.4 H mg/dL
(0.7-1.3)
Glucose 101 H mg/dl
(70-99)
05/02/25 20:51
05/02/25 20:51
Vital Signs
Initial and Last Documented VS:
Initial Vital Signs
Temp Pulse Resp BP Pulse Ox
36.6 C 85 20 137/88 99
05/02/25 19:53 05/02/25 19:53 05/02/25 19:53 05/02/25 19:53 05/02/25 19:53
Last Documented Vital Signs
Temp Pulse Resp BP Pulse Ox
36.6 C 74 18 114/74 98
05/02/25 19:53 05/02/25 23:02 05/02/25 23:02 05/02/25 23:02 05/02/25 23:21
MDM/Problems Addressed
Differential Diagnosis Includes:
Bilateral lower extremity edema equal. No evidence of erythema or warmth to either leg. Denies pain at this time. Chest x-ray obtained and on my review shows no evidence of pulmonary congestion, effusion or infiltrate. CBC and BMP unremarkable.
Troponin negative. proBNP normal.EKG obtained and shows normal sinus rhythm.
Discussed these findings with the patient. Exam and history is consistent with dependent lower extremity edema from prolonged sitting. Recommended compression stockings and getting up and moving around while driving more often. Discussed return
precautions including worsening edema and warmth/erythema to 1 leg and progressive shortness of breath. Nontachycardic during this encounter. He should follow-up with primary care physician or pathology laboratory director if this continues and worsens.
*Pulse Oximetry
SaO2: 98
Oxygen Mode of Delivery: Room air
Patient hypoxic: no
*Critical Care Note
Total Time (30-74mins, 75-104mins- exclusive of procedures): Not Applicable
ED Attending Note
-
Portions of this chart may have been created with voice recognition software.� Occasional wrong word or��sound alike� substitutions may have occurred due to the inherent limitations of voice recognition software.
Discharge Plan
Departure
Patient Disposition: Home (Routine Discharge)
Date of Disposition: 05/02/25
Time of Disposition: 23:39
Patient with high blood pressure during this ER visit?: No
Discharge Problem:
Edema
Instructions: Dependent Edema (DC), Swelling
Prescriptions:
No Action
potassium chloride 10 mEq Capsule, Extended Release
10 meq PO DAILYPRN PRN (Reason: low potassium)
valsartan-hydrochlorothiazide 160-12.5 mg Tablet
1 tab PO DAILY
colchicine 0.6 mg Tablet
0.6 mg PO DAILYPRN PRN (Reason: gout)
sibthovdlpiu-jqiewbfp-aizkao Tablet
1 tab PO DAILY
bupropion HCl 300 mg Tablet Extended Release 24 Hr
300 mg PO DAILY
tadalafil 5 mg Tablet
5 mg PO DAILYPRN PRN (Reason: ED)
Trulicity 1.5 mg/0.5 mL Pen Injector
1.5 mg SC QWEEK
carvedilol 12.5 mg Tablet
12.5 mg PO BID Qty: 180 5RF
aspirin 81 mg Tablet,Chewable
81 mg PO DAILY Qty: 1 0RF
clopidogrel 75 mg Tablet
75 mg PO DAILY Qty: 90 5RF
pantoprazole 40 mg Tablet,Delayed Release (Dr/Ec)
40 mg PO DAILY Qty: 90 5RF
atorvastatin 80 mg Tablet
80 mg PO QPM Qty: 90 5RF
amlodipine 5 mg Tablet
5 mg PO BID Qty: 180 5RF
ezetimibe 10 mg Tablet
10 mg PO DAILY Qty: 90 5RF
icosapent ethyl 1 gram capsule
2 g PO BID Qty: 180 5RF
Referrals:
Vannessa Haley, DO [Family Provider]
Activity Restrictions/Additional Instructions:
It is recommended that you wear compression stocks while driving or inactive. Do not wear these while you are sleeping. When resting elevate your feet. Follow-up with your pathology laboratory director if these measures do not improve the lower extremity edema.
Return to the ER for any shortness of breath, increase in swelling in 1 leg more than the other, redness or warmth in the leg.
Interventions
Interventions:
*Risk Screen - Suicide Last Done: 05/02/25 19:53
*General Assessment Last Done: 05/02/25 19:53
*Neglect/Abuse Screening Last Done: 05/02/25 19:53
*ED COVID-19 Vaccine History Last Done: 05/02/25 19:53
*ED Influenza Vaccine History Last Done: 05/02/25 19:53
[facility] Fall Risk Assessment Tool Last Done: 05/02/25 20:32
*Nursing Disposition Last Done: 05/03/25 00:02
ED- Cardiac Assessment Last Done: 05/02/25 20:33
ED- Pulmonary Assessment Last Done: 05/02/25 20:33
ED-Skin Assessment Last Done: 05/02/25 20:33
Discharge Date and Time
Discharge Date/Time: 05/03/25 00:03
Print Language: LITHUANIAN
[2025-05-02 21:25] LABS: ALT (SGPT) 34 U/L (0-50); AST (SGOT) 37 U/L (17-59); Albumin 4.1 g/dl (3.5-5.0); Alkaline Phosphatase 125 U/L (38-126); Blood Urea Nitrogen 23 mg/dl (9-20); Calcium 9.8 mg/dl (8.4-10.2); Carbon Dioxide 27 mmol/L (22-30); Chloride 101 mmol/L (98-107); Glucose 101 mg/dl (70-99); Potassium 4.0 mmol/L (3.5-5.1); Sodium 136 mmol/L (135-145); Total Protein 7.1 g/dl (6.3-8.2); eGFR 57.54
[2025-05-02 23:02] VITALS: BP 114/74
[2025-05-02 23:36] LABS: Troponin I < 0.012 ng/ml
== END 2025-05-03 00:03 | disposition home or self-care (01) ==
LOC: EMR 19:51
PROVIDERS: Surgery Trauma Surgery; EMERGENCY PHYSICIAN Emergency Medicine; FAMILY PHYSICIAN Family Medicine
DX: R60.0 Localized edema (principal); R06.02 Shortness of breath; E11.9 Type 2 diabetes mellitus without complications; I10 Essential (primary) hypertension; I25.2 Old myocardial infarction; F17.200 Nicotine dependence, unspecified, uncomplicated
CPT/HCPCS: 99285; 71046; 80053; 83880; 84484; 85025; 93005